=== PATIENT | male | born 1990 | race Asian ===

== ENCOUNTER 2021-11-14 09:48 | Outpatient (CLI) | payer OTHER | END 2021-11-14 09:49 | disposition home or self-care (01) | LOC: SCSRAD 09:48 | PROVIDERS: ATTEND Family Medicine | DX: R06.02 Shortness of breath (principal) | CPT/HCPCS: 70360; 71046 ==

== ENCOUNTER 2022-05-04 08:50 | Outpatient (CLI) | payer OTHER | END 2022-05-04 08:51 | disposition home or self-care (01) | LOC: RAD 08:50 | PROVIDERS: ATTEND Internal Medicine Critical Care Medicine | DX: R06.00 Dyspnea, unspecified (principal) | CPT/HCPCS: 71046 ==